=== PATIENT | female | born 1945 | race Caucasian/White ===

== ENCOUNTER 2024-02-29 07:41 | Inpatient (IN) | payer MEDICARE, OTHER ==
[2024-02-29] MEDS: predniSONE 20 MG TABLET PO STA (08:19)
[2024-02-29 08:25] LABS: BASOPHILS % (AUTO) 0.3 %; EOSINOPHILS % (AUTO) 0.2 %; HCT - HEMATOCRIT 41.3 % (37.0-47.0); HGB - HEMOGLOBIN 13.2 g/dL (12.0-16.0); LYMPHOCYTES % (AUTO) 14.3 %; MEAN CORPUSCULAR HEMOGLOBIN 27.4 pg (27.0-31.0); MEAN CORPUSCULAR VOLUME 85.7 fL (81.0-99.0); MEAN PLATELET VOLUME 10.2 fL (7.9-10.8); MONOCYTES % (AUTO) 7.4 %; NEUTROPHILS % (AUTO) 77.5 %; PLT - PLATELET COUNT 165 10^3/uL (130-450); RED BLOOD COUNT 4.82 10^6/uL (4.20-5.40); RED CELL DISTRIBUTION WIDTH 16.4 % (12.0-15.0); WHITE BLOOD COUNT 11.5 x10^3/uL (4.8-10.8)
[2024-02-29] MEDS: IPRATROPIUM/ALBUTEROL 3 ML NEB INH STA (08:25)
[2024-02-29 08:31] LABS: ABNORMAL LYMPHS % (MANUAL) 0 %
[2024-02-29 08:36] LABS: ALBUMIN 3.9 g/dL (3.2-5.5); ALBUMIN/GLOBULIN RATIO 1.1 (1.0-2.2); ALKALINE PHOSPHATASE 79 IU/L (42-121); ALT ALANINE AMINOTRANSFERASE 26 IU/L (10-60); AST ASPARTATE AMINOTRANSFERASE 31 IU/L (10-42); BILIRUBIN,TOTAL 0.9 mg/dL (0.2-1.0); BUN - BLOOD UREA NITROGEN 16 mg/dL (6-20); CALCIUM 9.1 mg/dL (8.5-10.3); CARBON DIOXIDE - CO2 25 mmol/L (21-32); CHLORIDE 96 mmol/L (101-111); CREATININE 1.1 mg/dL (0.6-1.3); GFR - MDRD 48 (>89); GLUCOSE 156 mg/dL (74-104); LIPASE < 10 U/L (11-82); POTASSIUM 3.7 mmol/L (3.5-4.5); SODIUM 131 mmol/L (135-145); TOTAL PROTEIN 7.5 g/dL (6.4-8.9)
[2024-02-29 08:43] LABS: BAND NEUTROPHILS % (MANUAL) 23 %; DIFFERENTIAL COMMENT MANUAL DIFFERENTIAL; LYMPHOCYTES # (MANUAL) 1.7 10^3/uL (1.5-3.5); LYMPHOCYTES % (MANUAL) 15 %; METAMYELOCYTES % (MANUAL) 3 %; MONOCYTES # (MANUAL) 0.9 10^3/uL (0.0-1.0); NEUTROPHILS # (MANUAL) 8.5 10^3/uL (1.5-6.6); PLATELET ESTIMATE, MANUAL NORMAL (130-450,000) (NORMAL); PLATELET MORPHOLOGY NORMAL APPEARANCE (NORMAL); RBC MORPHOLOGY (MULTIPLE) NORMAL APPEARANCE (NORMAL)
[2024-02-29] MEDS ORDERED: iohexoL-300 100 ML VIAL ONE (08:46)
--- NOTE | 2024-02-29 08:58 | XRAY Report ---
PROCEDURE: Chest 1V INDICATIONS: low O2 sat, hx COPD TECHNIQUE: One view of the chest was acquired. COMPARISON: None. FINDINGS: Surgical changes and devices: Clips are present overlying the left. Lungs and pleura: No pleural effusions or pneumothorax. Lungs are clear. Mediastinum: Mediastinal contours appear normal. Heart size is enlarged. Bones and chest wall: No suspicious bony lesions. Overlying soft tissues appear unremarkable. IMPRESSION: No acute cardiopulmonary process. Reviewed by: Juanis Rodriguez MD on 02/29/2024 8:56 AM PDT Approved by: Juanis Rodriguez MD on 02/29/2024 8:56 AM PDT Station ID: [id number]
[2024-02-29] MEDS: iohexoL-300 100 ML VIAL IVP ONE (09:16)
--- NOTE | 2024-02-29 09:34 | CT Report ---
PROCEDURE: Angio Chest INDICATIONS: SOA/hypoxia CONTRAST: OMNI 300 100ML TECHNIQUE: After the administration of intravenous contrast, 2 mm axial images were acquired from the pulmonary apices to the posterior costophrenic angles during the arterial phase. In addition, 1 mm lung kernel and 5 mm soft tissue kernel reconstructions were performed. 3-dimensional coronal oblique maximum int ensity projection (MIP) reformats, 8 mm axial MIP, and 5 mm coronal and sagittal MPR reformats were t hen performed through the thorax. For radiation dose reduction, the following was used: automated exp osure control, adjustment of mA and/or kV according to patient size. COMPARISON: Chest x-ray 02/29/2024 FINDINGS: Image quality: Excellent. Large vessels: No filling defects within the opacified pulmonary arteries, accounting for motion and contrast timing. No evidence of acute aortic syndrome or aortic aneurysm. Lungs and pleura: Patchy opacities are present in the bases bilaterally. No pleural effusions. No pn eumothorax. No suspicious pulmonary nodules which require follow up. Mediastinum: Heart size is normal. No pericardial effusion. No large vessel abnormality. No mediastin al adenopathy by size criteria. Chest wall and lower neck: Thyroid is unremarkable. No axillary or supraclavicular adenopathy by size . Bones: No aggressive osseous abnormality. Upper Abdomen: Unremarkable. IMPRESSION: No pulmonary embolus. Patchy bibasilar opacity suggestive atelectasis and possibly developing superimposed pneumonia. Reviewed by: Juanis Rodriguez MD on 02/29/2024 9:32 AM PDT Approved by: Juanis Rodriguez MD on 02/29/2024 9:32 AM PDT Station ID: [id number]
[2024-02-29 09:47] LABS: B. PARAPERTUSSIS- RESP PCR PAN NOT DETECTED; B. PERTUSSIS- RESP PCR PANEL NOT DETECTED; C. PNEUMONIAE- RESP PCR PANEL NOT DETECTED; CORONAVIRUS 229E-RESP PCR NOT DETECTED; CORONAVIRUS HKU1-RESP PCR DETECTED; CORONAVIRUS NL63-RESP PCR NOT DETECTED; CORONAVIRUS OC43-RESP PCR NOT DETECTED; HUMAN METAPNEUMOVIRUS NOT DETECTED; INFLUENZA A- RESP PCR PANEL NOT DETECTED; INFLUENZA B - RESP PCR PANEL NOT DETECTED; M. PNEUMONIAE- RESP PCR PANEL NOT DETECTED; PARAINFLUENZA VIRUS 1 DETECTED; PARAINFLUENZA VIRUS 2 NOT DETECTED; PARAINFLUENZA VIRUS 3 NOT DETECTED; PARAINFLUENZA VIRUS 4 NOT DETECTED; RHINOVIRUS/ENTEROVIRUS NOT DETECTED; RSV- RESP PCR PANEL NOT DETECTED; SARS-CoV-2 -RESP PCR PANEL NOT DETECTED
[2024-02-29] MEDS: cefTRIAXone 1 GM in SODIUM CHLORIDE 0.9% MINIBAG 100 ML IV STA (10:16)
--- NOTE | 2024-02-29 10:47 | ED Physician Documentation ---
PD HPI DYSPNEA - Stated complaint Stated Complaint: SOA - Chief complaint Chief Complaint: Resp - History obtained from History obtained from: Patient - Additional information Additional information: Patient is an 78-year-old female with a history of COPD presenting for evaluation of feeling short of breath for the last 4 days. Patiently is visiting the area from [place]. She arrived yesterday with her and they traveled via air. She is not normally on home oxygen. She has been having a productive cough for the last few days and states she did have a fever on Wednesday. She has not tested for COVID. She denies hemoptysis. No chest pain, abdominal pain, leg swelling. Denies history of PE. Review of Systems Constitutional: denies: Fever Cardiac: denies: Chest pain / pressure Respiratory: reports: Dyspnea, Cough GI: denies: Abdominal Pain, Vomiting Musculoskeletal: denies: Extremity swelling PD PAST MEDICAL HISTORY - Past Medical History Cardiovascular: Congestive heart failure - Present Medications Home Medications: Ambulatory Orders Medication Instructions Recorded Confirmed Albuterol Sulfate [Proventil Hfa] 2 puffs INH Q4H PRN 02/29/24 02/29/24 Atorvastatin Calcium 40 mg PO HS 02/29/24 02/29/24 Fluticasone/Vilanterol [Breo 1 inh INH DAILY 02/29/24 02/29/24 Ellipta 100-25 Mcg Inhalr] Levothyroxine [Synthroid] 75 mcg PO QDAC 02/29/24 02/29/24 - Allergies Allergies/Adverse Reactions: Allergies Allergy/AdvReac Type Severity Reaction Status Date / Time No Known Drug Allergies Allergy Verified 02/29/24 08:00 - Social History Does the pt smoke?: Yes Smoking Status: Former smoker PD ED PE NORMAL - General General: Alert and oriented X 3, No acute distress, Well developed/nourished - HEENT HEENT: Atraumatic, Moist mucous membranes, Pharynx benign - Neck Neck: Supple, no meningeal sign - Cardiac Cardiac: RRR, Strong equal pulses - Respiratory Respiratory: No respiratory distress, Other (Mildly diminished bilaterally) - Abdomen Abdomen: Normal bowel sounds, Soft, Non tender, Non distended - Derm Derm: Warm and dry - Extremities Extremities: No edema, No calf tenderness / cord - Neuro Neuro: Normal speech Results - Vitals Vitals: Vital Signs - 24 hr 02/29/24 02/29/2424 07:49 08:29 08:30 Temperature 37.1 C Heart Rate 106 H 108 H 122 H Respiratory 16 22 16 Rate Blood Pressure 122/55 L 122/48 L O2 Saturation 83 L 91 L If not protocol 2 2 : Oxygen Flow, liters/minute 02/29/24 02/29/24 02/29/24 08:56 09:30 10:00 Temperature Heart Rate 102 H 98 97 Respiratory 16 18 16 Rate Blood Pressure 122/48 L 108/59 L 108/59 L O2 Saturation 91 L 90 L 90 L If not protocol 2 4 4 : Oxygen Flow, liters/minute 02/29/24 02/29/24 10:30 12:30 Temperature Heart Rate 91 83 Respiratory 16 16 Rate Blood Pressure 112/58 L 119/57 L O2 Saturation 90 L 93 If not protocol 4 4 : Oxygen Flow, liters/minute Oxygen O2 Source Nasal cannula Oxygen Flow Rate 2 - EKG (time done) 0838 EKG releavant findings:: EKG personally interpreted by author of this note. Relevant findings are: Rate 106, sinus tachycardia, ventricular bigeminy, no STEMI, - Labs Labs: Laboratory Tests 02/29/24 02/29/24 02/29/24 08:05 08:05 08:05 WBC 11.5 H RBC 4.82 Hgb 13.2 Hct 41.3 MCV 85.7 MCH 27.4 MCHC 32.0 RDW 16.4 H Plt Count 165 MPV 10.2 Neut # (Auto) Not Reportable Lymph # (Auto) Not Reportable Waldo # (Auto) Not Reportable Eos # (Auto) Not Reportable Baso # (Auto) Not Reportable Absolute Nucleated RBC Not Reportable Total Counted 100 Band Neuts % (Manual) 23 H Abnorm Lymph % (Manual) 0 Metamyelocytes % 3 H Nucleated RBC % Not Reportable Neutrophils # (Manual) 8.5 H Lymphocytes # (Manual) 1.7 Monocytes # (Manual) 0.9 Eosinophils # (Manual) 0.0 Basophils # (Manual) 0.0 Differential Comment MANUAL DIFFERENTIAL Platelet Estimate NORMAL (130-450,000) Platelet Morphology NORMAL APPEARANCE RBC Morph Micro Appear NORMAL APPEARANCE Sodium 131 L Potassium 3.7 Chloride 96 L Carbon Dioxide 25 Anion Gap 10.0 BUN 16 Creatinine 1.1 Estimated GFR (MDRD) 48 L Glucose 156 H Lactic Acid Calcium 9.1 Total Bilirubin 0.9 AST 31 ALT 26 Alkaline Phosphatase 79 B-Natriuretic Peptide Total Protein 7.5 Albumin 3.9 Globulin 3.6 Albumin/Globulin Ratio 1.1 Lipase < 10 L Nasal Adenovirus (PCR) NOT DETECTED Nasal B. parapertussis DNA (PCR) NOT DETECTED Nasal Coronavir 229E PCR NOT DETECTED Nasal Coronavir HKU1 PCR DETECTED A Nasal Coronavir NL63 PCR NOT DETECTED Nasal Coronavir OC43 PCR NOT DETECTED Nasal Enterovir/Rhinovir PCR NOT DETECTED Nasal Influenza B PCR NOT DETECTED Nasal Influenza A PCR NOT DETECTED Nasal Parainfluen 1 PCR DETECTED A Nasal Parainfluen 2 PCR NOT DETECTED Nasal Parainfluen 3 PCR NOT DETECTED Nasal Parainfluen 4 PCR NOT DETECTED Nasal RSV (PCR) NOT DETECTED Nasal B.pertussis DNA PCR NOT DETECTED Nasal C.pneumoniae (PCR) NOT DETECTED Seven Human Metapneumo PCR NOT DETECTED Nasal M.pneumoniae (PCR) NOT DETECTED Nasal SARS-CoV-2 (PCR) NOT DETECTED 02/29/24 02/29/24 08:05 08:33 WBC RBC Hgb Hct MCV MCH MCHC RDW Plt Count MPV Neut # (Auto) Lymph # (Auto) Waldo # (Auto) Eos # (Auto) Baso # (Auto) Absolute Nucleated RBC Total Counted Band Neuts % (Manual) Abnorm Lymph % (Manual) Metamyelocytes % Nucleated RBC % Neutrophils # (Manual) Lymphocytes # (Manual) Monocytes # (Manual) Eosinophils # (Manual) Basophils # (Manual) Differential Comment Platelet Estimate Platelet Morphology RBC Morph Micro Appear Sodium Potassium Chloride Carbon Dioxide Anion Gap BUN Creatinine Estimated GFR (MDRD) Glucose Lactic Acid 1.9 Calcium Total Bilirubin AST ALT Alkaline Phosphatase B-Natriuretic Peptide 253 H Total Protein Albumin Globulin Albumin/Globulin Ratio Lipase Nasal Adenovirus (PCR) Nasal B. parapertussis DNA (PCR) Nasal Coronavir 229E PCR Nasal Coronavir HKU1 PCR Nasal Coronavir NL63 PCR Nasal Coronavir OC43 PCR Nasal Enterovir/Rhinovir PCR Nasal Influenza B PCR Nasal Influenza A PCR Nasal Parainfluen 1 PCR Nasal Parainfluen 2 PCR Nasal Parainfluen 3 PCR Nasal Parainfluen 4 PCR Nasal RSV (PCR) Nasal B.pertussis DNA PCR Nasal C.pneumoniae (PCR) Seven Human Metapneumo PCR Nasal M.pneumoniae (PCR) Nasal SARS-CoV-2 (PCR) PD Medical Decision Making - ED course Complexity details: reviewed results, re-evaluated patient, d/w patient, d/w family ED course: Patient is an 78-year-old female with a history of COPD not on home oxygen presenting for evaluation of shortness of breath and cough for the past few days. She recently traveled from [place] where she lives. She is hypoxic on room air. Lung sounds are diminished. CBC, chemistries, lactic, blood cultures, chest x-ray and EKG were obtained and reviewed. Significant for WBC of 11 it was 23% bandemia.Sodium 131.Chest x-ray which I reviewed did not show any significant findings. Given recent travel and significant hypoxia I did feel it was prudent to obtain a CT angio to evaluate for pulmonary embolism. Negative for PE but there are bibasilar patchy opacities suggestive of pneumonia. Patient started on antibiotics. Was already given a DuoNeb as well as p.o. prednisone With some improvement. Respiratory swab was positive for non-COVID coronavirus and parainfluenza for strain.Discussed with admitting hospitalist, Dr. Woody who will admit for further management. Departure - Departure Disposition: 66 [facility] DC/Xfer Clinical Impression: Acute respiratory failure with hypoxia, COPD exacerbation CAP (community acquired pneumonia) Qualifiers: Lung location: unspecified part of lung Condition: Good Discharge Date/Time: 02/29/24 14:06
[2024-02-29] MEDS: AZITHROMYCIN INJ 500 MG in SODIUM CHLORIDE 0.9% 250 ML IV STA (10:53)
[2024-02-29] MEDS ORDERED: SODIUM CHLORIDE FLUSH 0.9% 10 ML SYRINGE IVP PRN (12:20)
[2024-02-29] MEDS ORDERED: ONDANSETRON 4 MG/2 ML VIAL IVP PRN (12:20)
[2024-02-29] MEDS ORDERED: ACETAMINOPHEN 325 MG TABLET PO PRN (12:20)
[2024-02-29] MEDS ORDERED: oxyCODONE 5 MG TABLET PO PRN (12:20)
[2024-02-29] MEDS ORDERED: ONDANSETRON ODT 4 MG TABLET TL PRN (12:20)
[2024-02-29] MEDS: SODIUM CHLORIDE 0.9% 1,000 ML IV SCH (12:48)
[2024-02-29] MEDS: methylPREDNISolone SUCCINATE 40 MG/ML VIAL IVP SCH (15:21)
[2024-02-29] MEDS: IPRATROPIUM/ALBUTEROL 3 ML NEB INH SCH (15:23)
[2024-02-29] MEDS: FORMOTEROL FUMARATE NEB 20 MCG/2 ML INH STA (15:23)
--- NOTE | 2024-02-29 16:01 | HISTORY & PHYSICAL EXAMINATION ---
Chief Complaint - Chief Complaint Chief Complaint: cough, congestion, fever History of Present Illness - Admitted From Admitted From:: friends house - History Obtained From Records Reviewed: [facility] History obtained from: patient Exam Limitations: none - History of Present Illness HPI Comment/Other: from [place], visiting friends. Healthy w no major issues other than DM. Developed COPD w asthma 10/2023 when she Became ill with COVID and strep throat. She uses an inhaler once a day without issues. She was ill even before she left [place] to come to the [place]. Cough, chest congestion, and fever. Anorexia. Had 1 episode of diarrhea yesterday. Came to the emergency room where she was hypoxic to 83% on room air. Currently on MedSurg she is requiring 4 L nasal cannula to saturate at 90%. In the emergency room she is mildly tachycardic to the low 100s. Normotensive. No respiratory distress. Temperature is 37. She has markedly diminished breath sounds in all lung avila according to the emergency room provider but no outright wheezing or use of accessory muscles. Her chest x-ray was negative for pneumonia. And a CT pulmonary angiogram was done because of her recent travel history. She does not have pulmonary embolus but she does have patchy bibasilar opacities suggesting atelectasis and a possibly developing superimposed pneumonia. Her sodium was mildly low at 131. Her white cell count was elevated 11.5. She had 23% bands, 3% metamyelocytes. She has diabetes and glucose was 156. BNP was 253. Lactic acid 1.9. Her viral panel was positive for non-COVID coronavirus, and parainfluenza. I am now placing her in inpatient status for hypoxia, tachycardia and an abnormal chest x-ray. History - Past Medical History Cardiovascular: reports: Congestive heart failure (Put in the EMR by the nurse, but the patient denies history) Respiratory: reports: Asthma, COPD Neuro: reports: Motion sickness Endocrine/Autoimmune: reports: Type 2 diabetes, HyPOthyroidism GI: reports: None ASSEMBLY DETAILER: reports: Other () : reports: Incontinence (at night wears depends) HEENT: reports: None Psych: reports: Claustrophobia Musculoskeletal: reports: None Derm: reports: None MRSA Hx?: No Other Past Medical History: Patient denies hx of CHF, dental bridge (>50 yrs ago), Mastectomy at left, skin cancer (>10 years ago) - Past Surgical History General: reports: Cholecystectomy, Appendectomy /ASSEMBLY DETAILER: reports: Mastectomy Derm: reports: Skin cancer surgery - Family & Social History Family History Comment/Other: Mom aage 87 of CHF. Dad age 79 if CHF. 1 brother with parkinsons, immune disorder and heart valve disease. 3 children are healthy Living arrangement: At home Living Situation: With spouse/s.o. Social History Notes: Born and raised in [place]. Currently lives in [facility]. 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 No hx of alcohol or tobacco abuse. Never smoked. Visiting a good friend and comes frequently to the [place]. - Substance History Use: Uses substance without health or social issues: NONE Abuse: Recurrent use of substance despite neg consequences: NONE Dependence: Experiences withdrawal or developed tolerances: NONE - POLST Patient has POLST: No POLST Status: DNR Meds/Allgy - Home Medications Home Medications: Ambulatory Orders Medication Instructions Recorded Confirmed Albuterol Sulfate [Proventil Hfa] 2 puffs INH Q4H PRN 02/29/24 02/29/24 Atorvastatin Calcium 40 mg PO HS 02/29/24 02/29/24 Fluticasone/Vilanterol [Breo 1 inh INH DAILY 02/29/24 02/29/24 Ellipta 100-25 Mcg Inhalr] Levothyroxine [Synthroid] 75 mcg PO QDAC 02/29/24 02/29/24 - Allergies Allergies/Adverse Reactions: Allergies Allergy/AdvReac Type Severity Reaction Status Date / Time No Known Drug Allergies Allergy Verified 02/29/24 08:00 Review of Systems - Constitutional Constitutional: reports: Fatigue, Fever, Malaise, Poor appetite - Eyes Eyes: denies: Pain, Irritation, Amaurosis, Blurred vision - Ears, Nose & Throat Ears, Nose & Throat: denies: Ear pain, Hearing loss, Hearing aids, Tinnitus, Sore throat, Hoarseness - Cardiovascular Cariovascular: denies: Irregular heart rate, Palpitations, Chest pain, Edema, Exertional dyspnea, Decr. exercise tolerance - Respiratory Respiratory: reports: Cough, Sputum production, Wheezing, SOB with exertion. denies: Snoring, Orthopnea, SOB at rest - Gastrointestinal Gastrointestinal: reports: Diarrhea. denies: Abdominal pain, Abdominal dist ention, Constipation - Genitourinary Genitourinary: reports: Incontinence. denies: Dysuria, Frequency, Urgency, Hematuria - Musculoskeletal Musculoskeletal: denies: Muscle pain, Back pain, Muscle aches, Stiffness - Integumentary Integumentary: denies: Rash, Pruritis, Lesions, Dryness - Neurological Neurological: reports: General weakness. denies: Focal weakness, Headache, Dizziness, Memory problems, Pre-existing deficit, Abnormal gait - Psychiatric Psychiatric: denies: Depression, Anxiety, Suicidal, Hallucinations, Homicidal - Endocrine Endocrine: denies: Polyuria, Polydypsia, Polyphagia - Hematologic/Lymphatic Hematologic/Lymphatic: denies: Anemia, Bruising, Petechiae Prior Level of Functionality: does not use any DME. Drives, works, takes care of hosue without issue Exam - Vital Signs Reviewed Vital Signs: Yes Vital Signs: Vital Signs x48h Temp Pulse Pulse Resp BP BP Pulse Ox 02/29/24 14:27 36.7 C 86 20 114/56 L 90 L 02/29/24 14:14 02/29/24 12:30 83 16 119/57 L 93 02/29/24 10:30 91 16 112/58 L 90 L 02/29/24 10:00 97 16 108/59 L 90 L 02/29/24 09:30 98 18 108/59 L 90 L 02/29/24 08:56 102 H 16 122/48 L 91 L 02/29/24 08:30 122 H 16 122/48 L 91 L 02/29/24 08:29 108 H 22 O2 Flow Rate 02/29/24 14:27 3 02/29/24 14:14 4 02/29/24 12:30 4 02/29/24 10:30 4 02/29/24 10:00 4 02/29/24 09:30 4 02/29/24 08:56 2 02/29/24 08:30 2 02/29/24 08:29 2 - Physical Exam General Appearance: positive: No acute distress, Alert, Other (looks much younger than stated age. at the bedside. He is moderatel deaf and can't contribute much) Eyes Bilateral: positive: PERRL, EOMI ENT: positive: Pharynx nml Neck: positive: No JVD. negative: Stiff neck Respiratory: positive: No respiratory distress, Rhonchi (squeaking and cracking at bases. Rest of lungs quiet) Cardiovascular: positive: Regular rate & rhythm Peripheral Pulses: positive: 1+ Abdomen: positive: Non-tender, No organomegaly, Nml bowel sounds, No distention Skin: positive: Warm, Dry Extremities: positive: Full ROM, No pedal edema Neurologic/Psychiatric: positive: Oriented x3, CN's nml (2-12), Motor nml Conclusion/Plan - Problem List (1) Acute respiratory failure with hypoxia Conclusion/Plan: most likely due to atelectasis or early pna from her viral illness. PE was thought of and ruled out with CTA. Somewhere along the line, hx of CHF was put in PMH by ?intake nurse but the patient denies the hx of that. While she has a hx of copd there is no wheezing, and she is at 45 degress, comfortable without tachypnea in spite of hypoxia. Plan treat as viral illness with possible eearly pna Azithro Day 1/ Ceftriazone Day 1/ Adjust abx on basis of cultures supplement w 02 to keep 02 sats >92% no tamilflu (2) CAP (community acquired pneumonia) Conclusion/Plan: bilateral lower lobes. Has left shift on WBC that is mildly elevated indicating bacterial infection. as above with abx Qualifiers: Lung location: unspecified part of lung (3) COPD without exacerbation Conclusion/Plan: quiet lungs on exam. Duoneb and IV steroids solumedrol 40 mg tid. (4) Controlled type 2 diabetes mellitus without complication, without long-term current use of insulin Conclusion/Plan: home med is metformin. she is going to be getting steroids. Plan: glucometer stick ac and hs. SS insulin before meals. A1c in the morning. (5) Do not resuscitate Conclusion/Plan: she doesn't want cpr or intubation. But does want full treatment prior to that. - Lab Results Lab results reviewed: Yes Fish Bones: 02/29/24 08:05 02/29/24 08:05 - Diagnostic Imaging Results Diagnostic Imaging Results: positive: Final report reviewed - EKG Results EKG Interpreted Independently: No Core Measures - Anticipated LOS I expect patient to be DC'd or transferred within 96 hours.: Yes - DVT/VTE - Prophylaxis VTE/DVT Prophylaxis med ordered at admit?: Yes
[2024-02-29] MEDS: SODIUM CHLORIDE FLUSH 0.9% 10 ML SYRINGE IVP SCH (16:41)
[2024-02-29] MEDS: SACCHAROMYCES BOULARDII 250 MG CAPSULE PO SCH (18:37)
[2024-02-29] MEDS: BUDESONIDE 0.5 MG/2 ML NEB INH SCH (19:14)
[2024-02-29] MEDS: ATORVASTATIN 40 MG TABLET PO SCH (21:08)
[2024-03-01 06:05] LABS: BASOPHILS % (AUTO) 0.2 %; HCT - HEMATOCRIT 36.1 % (37.0-47.0); HGB - HEMOGLOBIN 11.5 g/dL (12.0-16.0); LYMPHOCYTES # (AUTO) 1.1 10^3/uL (1.5-3.5); LYMPHOCYTES % (AUTO) 9.5 %; MEAN CORPUSCULAR HEMOGLOBIN 27.3 pg (27.0-31.0); MEAN CORPUSCULAR HGB CONC 31.9 g/dL (32.0-36.0); MEAN CORPUSCULAR VOLUME 85.5 fL (81.0-99.0); MEAN PLATELET VOLUME 10.2 fL (7.9-10.8); MONOCYTES # (AUTO) 0.7 10^3/uL (0.0-1.0); NEUTROPHILS # (AUTO) 9.9 10^3/uL (1.5-6.6); NEUTROPHILS % (AUTO) 83.9 %; PLT - PLATELET COUNT 164 10^3/uL (130-450); RED BLOOD COUNT 4.22 10^6/uL (4.20-5.40); RED CELL DISTRIBUTION WIDTH 16.3 % (12.0-15.0); WHITE BLOOD COUNT 11.7 x10^3/uL (4.8-10.8)
[2024-03-01 06:19] LABS: CALCIUM 9.2 mg/dL (8.5-10.3); CREATININE 0.8 mg/dL (0.6-1.3); POTASSIUM 4.1 mmol/L (3.5-4.5)
[2024-03-01] MEDS: LEVOTHYROXINE 75 MCG TABLET PO SCH (06:59)
[2024-03-01] MEDS: AZITHROMYCIN INJ 500 MG in SODIUM CHLORIDE 0.9% 250 ML IV SCH (08:58)
[2024-03-01 09:35] LABS: ESTIMATED AVERAGE GLUCOSE 148 mg/dL (70-100); HEMOGLOBIN A1c% 6.8 % (4.27-6.07)
--- NOTE | 2024-03-01 10:16 | PHARMACY PROGRESS NOTE ---
- Best Possible Medication History Admit Date and Time: 02/29/24 1237 Processed by: Pharmacy Medications reviewed in ED?: No Medication History completed: Yes Patient Interview: Completed Secondary Source(s): Insurance records As the person ultimately responsible for medication therapy, providers are able to order a medication from an existing home medication list in [facility] via the "Reconcile Routine" prior to Confirmation of that medication by work station support specialist. Such practice is discouraged except when the physician, in their clinical judgment, deems that a medical need exists for a medication without regard to previous use.
[2024-03-01] MEDS: cefTRIAXone 1 GM in SODIUM CHLORIDE 0.9% MINIBAG 100 ML IV SCH (10:32)
[2024-03-01] MEDS: INSULIN LISPRO 300 UNIT/3 ML PEN SUBQ SCH ×2 (11:53→20:52)
--- NOTE | 2024-03-01 12:21 | PROVIDER PROGRESS NOTE ---
Assessment/Plan - Problem List (1) Acute respiratory failure with hypoxia Assessment/Plan: due to viral infection and possible secondary bacterial lung infection. No growth to date on blood cultures. Still needed 4 liters NC today. Lungs w fine crackles today and improved from yesterday. Sitting up in chair eating lunch. Clear secretions with her cough. Plan: No tamilflu continue duoneb continue azithromycin Day 2/3 Continue ceftriaxone Day 2/5 continue solumedrol Day 2/3 continue IS (2) CAP (community acquired pneumonia) Conclusion/Plan: Bilateral lower lobes. Has left shift on WBC that is mildly elevated indicating bacterial infection. as above with abx. Qualifiers: Lung location: unspecified part of lung (3) COPD without exacerbation Conclusion/Plan: Lung exam as above. Continue Duoneb and IV steroids solumedrol 40 mg TID. (4) Controlled type 2 diabetes mellitus without complication, without long-term current use of insulin Conclusion/Plan: Home med is metformin. She is on IV steroids. HA1c 6.8, suggests suboptimal blood glucose control. Blood glucose 350 today prior to lunch on insulin lispro moderate intensity (received 9 units SQ) Plan: Continue glucometer stick ac and hs. SS insulin before meals, increase to high intensity protocol Add lantus 10 units at hs (5) Do not resuscitate Conclusion/Plan: She doesn't want cpr or intubation. But does want full treatment prior to that. - Current Meds Current Meds: Current Medications Generic Name Dose Route Start Last Admin Trade Name Freq PRN Reason Stop Dose Admin Albuterol/Ipratropium 3 ml 02/29/24 15:00 03/01/24 11:10 Ipratropium/Albuterol 3 Ml Neb INH 3 ml RTQID CRYSTAL Administration Atorvastatin Calcium 40 mg 02/29/24 21:00 02/29/24 21:08 Atorvastatin 40 Mg Tablet PO Not Given HS CRYSTAL Budesonide 0.5 mg 02/29/24 19:00 03/01/24 07:09 Budesonide 0.5 Mg/2 Ml Neb INH 0.5 mg RTBID CRYSTAL Administration Azithromycin 500 mg/ Sodium 250 mls @ 250 mls/hr 03/01/24 09:00 03/01/24 11:11 Chloride IV 03/03/24 09:59 Infused DAILY CRYSTAL Infusion Ceftriaxone Sodium 1 gm/ 100 mls @ 200 mls/hr 03/01/24 09:00 03/01/24 11:16 Sodium Chloride IV 03/05/24 09:29 Infused DAILY CRYSTAL Infusion Insulin Human Lispro 1 - 9 unit 03/01/24 12:00 03/01/24 11:53 Insulin Lispro 300 Unit/3 Ml Pen SUBQ 9 unit 0800,1200,1700,2100 CRYSTAL Administration Protocol Levothyroxine Sodium 75 mcg 03/01/24 07:00 03/01/24 06:59 Levothyroxine 75 Mcg Tablet PO 75 mcg QDAC CRYSTAL Administration Methylprednisolone 40 mg 02/29/24 14:00 03/01/24 06:59 Methylprednisolone Succinate 40 Mg/Ml Vial IVP 40 mg TID CRYSTAL Administration Saccharomyces Boulardii 250 mg 02/29/24 17:00 03/01/24 07:45 Saccharomyces Boulardii 250 Mg Capsule PO 250 mg BIDWM CRYSTAL Administration Sodium Chloride 10 ml 02/29/24 17:00 03/01/24 09:41 Sodium Chloride Flush 0.9% 10 Ml Syringe IVP Not Given 0100,0900,1700 CRYSTAL - Lab Result Fish Bone Diagrams: 03/01/24 05:56 03/01/24 05:56 - Additional Planning Condition/Complexity: Stable (Still remains on 4L NC O2) My Orders: My Active Orders 02/29/24 12:20 Activity Orders [RC] Q2HR IO [RC] IOSHIFT Incentive Spirometry - RT [RC] .tid Initiate Bowel Care Protocol [RC] .protocol Initiate Line Care Protocol [RC] QSHIFT Initiate Personal Care Protoco [RC] .protocol Oxygen Therapy [RC] .PRN Vital Signs [RC] 0800,1600,0000 Acetaminophen [Tylenol] 650 mg PO Q4HR PRN Ondansetron Inj [Zofran Inj] 4 mg IVP Q6HR PRN Ondansetron Odt [Zofran Odt] 4 mg TL Q6HR PRN Sodium Chloride Flush 0.9% [Normal Saline Flush 0.9%] 10 ml IVP PRN PRN oxyCODONE [Roxicodone] 5 mg PO Q4HR PRN Code Status [OTHERS] Routine Condition of Patient [OTHERS] Routine DVT Prophylaxis [OTHERS] Routine 02/29/24 12:26 IV Insert [RC] .ONCE 02/29/24 12:35 Resp Teach Nebulizer/MDI [RC] .ONCE 02/29/24 12:39 PN-6 Meaningful Use Quality and Core Measures [OTHERS] Routine 02/29/24 14:00 methylPREDNISolone SUCCINATE [SOLU-Medrol (40MG VIAL)] 40 mg IVP TID 02/29/24 15:00 Ipratropium/Albuterol [Duoneb] 3 ml INH RTQID 02/29/24 15:50 Resuscitation [Code Status] [OTHERS] Routine 02/29/24 17:00 Saccharomyces Boulardii [Florastor] 250 mg PO BIDWM Sodium Chloride Flush 0.9% [Normal Saline Flush 0.9%] 10 ml IVP 0100,0900,1700 02/29/24 19:00 Budesonide [Pulmicort] 0.5 mg INH RTBID 02/29/24 19:16 Nebulizer [Nebulizer/MDI Tx.] [RC] QID 02/29/24 21:00 Atorvastatin [Lipitor] 40 mg PO HS 03/01/24 07:00 Levothyroxine [Synthroid] 75 mcg PO QDAC 03/01/24 08:03 Blood Glucose Checks - Eating [RC] 0800,1200,1700,2100 Initiate Hypoglycemia Protocol [RC] .protocol 03/01/24 09:00 Azithromycin Inj [Zithromax Inj] 500 mg Sodium Chloride 0.9% [Normal Saline 0.9%] 250 ml IV DAILY cefTRIAXone [Rocephin] 1 gm Sodium Chloride 0.9% Minibag [Normal Saline 0.9% Minibag] 100 ml IV DAILY 03/01/24 12:00 Insulin Lispro [Humalog Kwikpen U-100] 1 - 9 unit SUBQ 0800,1200,1700,2100 03/02/24 05:00 BMP - BASIC METABOLIC PANEL [CHEM] DAILYLAB CBC [CBC - COMP BLD CT W/AUTO DIFF] [HEME] DAILYLAB 03/02/24 09:00 BNP - B-NATRIURETIC PEPTIDE [CHEM] DAILY 03/03/24 05:00 BMP - BASIC METABOLIC PANEL [CHEM] DAILYLAB CBC [CBC - COMP BLD CT W/AUTO DIFF] [HEME] DAILYLAB 03/03/24 09:00 BNP - B-NATRIURETIC PEPTIDE [CHEM] DAILY 03/04/24 05:00 BMP - BASIC METABOLIC PANEL [CHEM] DAILYLAB CBC [CBC - COMP BLD CT W/AUTO DIFF] [HEME] DAILYLAB 03/04/24 09:00 BNP - B-NATRIURETIC PEPTIDE [CHEM] DAILY 03/05/24 05:00 BMP - BASIC METABOLIC PANEL [CHEM] DAILYLAB CBC [CBC - COMP BLD CT W/AUTO DIFF] [HEME] DAILYLAB 03/05/24 09:00 BNP - B-NATRIURETIC PEPTIDE [CHEM] DAILY Plan Discussed with:: Patient, Spouse Time Spent: Less than 15 minutes Subjective - Subjective Patient Reports: Feeling Better, Resting Comfortably (diarrhea better. the only nursing worry was glucose being high) Objective Vital Signs: Vital Signs - 24 hr 02/29/24 02/29/24 02/29/24 12:30 14:14 14:27 Temperature 36.7 C Heart Rate 83 Heart Rate [ 86 Brachial] Respiratory 16 20 Rate Blood Pressure 119/57 L Blood Pressure 114/56 L [Right Brachial artery] O2 Saturation 93 90 L If not protocol 4 4 3 : Oxygen Flow, liters/minute 02/29/24 02/29/24 03/01/24 16:00 19:15 00:00 Temperature 37.3 C 36.3 C L Heart Rate 86 Heart Rate [ 78 69 Brachial] Respiratory 16 24 20 Rate Blood Pressure Blood Pressure 127/68 140/70 H [Right Brachial artery] O2 Saturation 92 93 If not protocol 3 3 2 : Oxygen Flow, liters/minute 03/01/24 03/01/24 03/01/24 07:10 07:11 07:47 Temperature 36.6 C Heart Rate 78 Heart Rate [ 78 Brachial] Respiratory 22 Rate Blood Pressure Blood Pressure 122/57 L [Right Brachial artery] O2 Saturation 91 L If not protocol 2 2 4 : Oxygen Flow, liters/minute 03/01/24 11:11 Temperature Heart Rate 74 Heart Rate [ Brachial] Respiratory 20 Rate Blood Pressure Blood Pressure [Right Brachial artery] O2 Saturation If not protocol 4 : Oxygen Flow, liters/minute Oxygen O2 Source Nasal cannula Oxygen Flow Rate 2 I&O (Last 24 Hrs): Intake and Output Totals x24h 02/28/24 02/29/24 03/01/24 23:59 23:59 23:59 Intake Total 790 2190 Balance 790 2190 General: Alert, Oriented x3, Cooperative HEENT: Atraumatic, PERRLA Neuro: Alert, Non Focal, Oriented Times 3 Cardiovascular: Regular rate, Normal S1, Normal S2, No murmurs Respiratory: Chest non-tender, No respiratory distress Abdomen: Normal bowel sounds, Soft, No tenderness Genitourinary: Normal External, No Bleeding, No Tenderness Rectal: Non-Tender Extremities: Other (+ bilat pedal edema) Skin: No rashes - Results Results: Laboratory Results WBC 11.7 x10^3/uL (4.8-10.8) H 03/01/24 05:56 RBC 4.22 10^6/uL (4.20-5.40) 03/01/24 05:56 Hgb 11.5 g/dL (12.0-16.0) L 03/01/24 05:56 Hct 36.1 % (37.0-47.0) L 03/01/24 05:56 MCV 85.5 fL (81.0-99.0) 03/01/24 05:56 MCH 27.3 pg (27.0-31.0) 03/01/24 05:56 MCHC 31.9 g/dL (32.0-36.0) L 03/01/24 05:56 RDW 16.3 % (12.0-15.0) H 03/01/24 05:56 Plt Count 164 10^3/uL (130-450) 03/01/24 05:56 MPV 10.2 fL (7.9-10.8) 03/01/24 05:56 Neut # (Auto) 9.9 10^3/uL (1.5-6.6) H 03/01/24 05:56 Lymph # (Auto) 1.1 10^3/uL (1.5-3.5) L 03/01/24 05:56 [place] # (Auto) 0.7 10^3/uL (0.0-1.0) 03/01/24 05:56 Eos # (Auto) 0.0 10^3/uL (0.0-0.7) 03/01/24 05:56 Baso # (Auto) 0.0 10^3/uL (0.0-0.1) 03/01/24 05:56 Absolute Nucleated RBC 0.00 x10^3/uL 03/01/24 05:56 Total Counted 100 02/29/24 08:05 Band Neuts % (Manual) 23 % (0-10) H 02/29/24 08:05 Abnorm Lymph % (Manual) 0 % 02/29/24 08:05 Metamyelocytes % 3 % (-0) H 02/29/24 08:05 Nucleated RBC % 0.0 /100WBC 03/01/24 05:56 Neutrophils # (Manual) 8.5 10^3/uL (1.5-6.6) H 02/29/24 08:05 Lymphocytes # (Manual) 1.7 10^3/uL (1.5-3.5) 02/29/24 08:05 Monocytes # (Manual) 0.9 10^3/uL (0.0-1.0) 02/29/24 08:05 Eosinophils # (Manual) 0.0 10^3/uL (0-0.7) 02/29/24 08:05 Basophils # (Manual) 0.0 10^3/uL (0-0.1) 02/29/24 08:05 Differential Comment MANUAL DIFFERENTIAL 02/29/24 08:05 Platelet Estimate NORMAL (130-450,000) (NORMAL) 02/29/24 08:05 Platelet Morphology NORMAL APPEARANCE (NORMAL) 02/29/24 08:05 RBC Morph Micro Appear NORMAL APPEARANCE (NORMAL) 02/29/24 08:05 Sodium 137 mmol/L (135-145) 03/01/24 05:56 Potassium 4.1 mmol/L (3.5-4.5) 03/01/24 05:56 Chloride 107 mmol/L (101-111) 03/01/24 05:56 Carbon Dioxide 24 mmol/L (21-32) 03/01/24 05:56 Anion Gap 6.0 (6-13) 03/01/24 05:56 BUN 19 mg/dL (6-20) 03/01/24 05:56 Creatinine 0.8 mg/dL (0.6-1.3) 03/01/24 05:56 Estimated GFR (MDRD) 69 (>89) L 03/01/24 05:56 Glucose 200 mg/dL (74-104) H 03/01/24 05:56 POC Whole Bld Glucose 350 mg/dL (70 - 100) H 03/01/24 11:01 Estimat Average Glucose 148 mg/dL (70-100) H 03/01/24 05:56 Hemoglobin A1c % 6.8 % (4.27-6.07) H 03/01/24 05:56 Lactic Acid 1.9 mmol/L (0.5-2.2) 02/29/24 08:33 Calcium 9.2 mg/dL (8.5-10.3) 03/01/24 05:56 Total Bilirubin 0.9 mg/dL (0.2-1.0) 02/29/24 08:05 AST 31 IU/L (10-42) 02/29/24 08:05 ALT 26 IU/L (10-60) 02/29/24 08:05 Alkaline Phosphatase 79 IU/L (42-121) 02/29/24 08:05 B-Natriuretic Peptide 285 pg/mL (5-100) H 03/01/24 05:56 Total Protein 7.5 g/dL (6.4-8.9) 02/29/24 08:05 Albumin 3.9 g/dL (3.2-5.5) 02/29/24 08:05 Globulin 3.6 g/dL (2.1-4.2) 02/29/24 08:05 Albumin/Globulin Ratio 1.1 (1.0-2.2) 02/29/24 08:05 Lipase < 10 U/L (11-82) L 02/29/24 08:05 Nasal Adenovirus (PCR) NOT DETECTED 02/29/24 08:05 Nasal B. parapertussis DNA (PCR) NOT DETECTED 02/29/24 08:05 Nasal Coronavir 229E PCR NOT DETECTED 02/29/24 08:05 Nasal Coronavir HKU1 PCR DETECTED A 02/29/24 08:05 Nasal Coronavir NL63 PCR NOT DETECTED 02/29/24 08:05 Nasal Coronavir OC43 PCR NOT DETECTED 02/29/24 08:05 Nasal Enterovir/Rhinovir PCR NOT DETECTED 02/29/24 08:05 Nasal Influenza B PCR NOT DETECTED 02/29/24 08:05 Nasal Influenza A PCR NOT DETECTED 02/29/24 08:05 Nasal Parainfluen 1 PCR DETECTED A 02/29/24 08:05 Nasal Parainfluen 2 PCR NOT DETECTED 02/29/24 08:05 Nasal Parainfluen 3 PCR NOT DETECTED 02/29/24 08:05 Nasal Parainfluen 4 PCR NOT DETECTED 02/29/24 08:05 Nasal RSV (PCR) NOT DETECTED 02/29/24 08:05 Nasal B.pertussis DNA PCR NOT DETECTED 02/29/24 08:05 Nasal C.pneumoniae (PCR) NOT DETECTED 02/29/24 08:05 Seven Human Metapneumo PCR NOT DETECTED 02/29/24 08:05 Nasal M.pneumoniae (PCR) NOT DETECTED 02/29/24 08:05 Nasal SARS-CoV-2 (PCR) NOT DETECTED 02/29/24 08:05 ABX Reporting Has patient been on IV antibiotics over the past 48 hours?: Yes Current Medications - Current Medications Current Medications: Active Medications Acetaminophen (Acetaminophen 325 Mg Tablet) 650 mg PO Q4HR PRN PRN Reason: Pain 1 to 4, or Fever Albuterol/Ipratropium (Ipratropium/Albuterol 3 Ml Neb) 3 ml INH RTQID CRYSTAL Last Admin: 03/01/24 15:18 Dose: 3 ml Atorvastatin Calcium (Atorvastatin 40 Mg Tablet) 40 mg PO HS CRYSTAL Last Admin: 02/29/24 21:08 Dose: Not Given Budesonide (Budesonide 0.5 Mg/2 Ml Neb) 0.5 mg INH RTBID CRYSTAL Last Admin: 03/01/24 07:09 Dose: 0.5 mg Diphenhydramine HCl (Diphenhydramine 25 Mg Capsule) 25 mg PO Q4HR PRN PRN Reason: Allergy Symptoms Last Admin: 03/01/24 14:05 Dose: 25 mg Azithromycin 500 mg/ Sodium (Chloride) 250 mls @ 250 mls/hr IV DAILY CRYSTAL Stop: 03/03/24 09:59 Last Infusion: 03/01/24 11:11 Dose: Infused Ceftriaxone Sodium 1 gm/ (Sodium Chloride) 100 mls @ 200 mls/hr IV DAILY CRYSTAL Stop: 03/05/24 09:29 Last Infusion: 03/01/24 11:16 Dose: Infused Insulin Glargine-yfgn (Insulin Glargine-Yfgn 300 Unit/3 Ml Pen) 10 unit SUBQ QPM CRYSTAL Insulin Human Lispro (Insulin Lispro 300 Unit/3 Ml Pen) 1 - 9 unit SUBQ 0800,1200,1700,2100 CRYSTAL; Protocol Last Admin: 03/01/24 16:56 Dose: 5 unit Levothyroxine Sodium (Levothyroxine 75 Mcg Tablet) 75 mcg PO QDAC [facility] Last Admin: 03/01/24 06:59 Dose: 75 mcg Methylprednisolone (Methylprednisolone Succinate 40 Mg/Ml Vial) 40 mg IVP TID [facility] Last Admin: 03/01/24 14:05 Dose: 40 mg Ondansetron HCl (Ondansetron Odt 4 Mg Tablet) 4 mg TL Q6HR PRN PRN Reason: Nausea / Vomiting Ondansetron HCl (Ondansetron 4 Mg/2 Ml Vial) 4 mg IVP Q6HR PRN PRN Reason: Nausea / Vomiting Oxycodone HCl (Oxycodone 5 Mg Tablet) 5 mg PO Q4HR PRN PRN Reason: Pain 5 to 7 Saccharomyces Boulardii (Saccharomyces Boulardii 250 Mg Capsule) 250 mg PO BIDWM [facility] Last Admin: 03/01/24 16:57 Dose: 250 mg Sodium Chloride (Sodium Chloride Flush 0.9% 10 Ml Syringe) 10 ml IVP PRN PRN PRN Reason: NEEDED PER PROVIDER ORDERS Sodium Chloride (Sodium Chloride Flush 0.9% 10 Ml Syringe) 10 ml IVP 0100,0900,1700 [facility] Last Admin: 03/01/24 16:57 Dose: 10 ml Albuterol Sulfate [Proventil Hfa] 2 puffs INH Q4H PRN 02/29/24 Fluticasone/Vilanterol [Breo Ellipta 100-25 Mcg Inhalr] 1 inh INH DAILY 02/29/24 Levothyroxine [Synthroid] 75 mcg PO QDAC 02/29/24 Aspirin [[place] Aspirin EC] 81 mg PO DAILY 03/01/24 Cetirizine [ZyrTEC] 10 mg PO DAILY 03/01/24 Cholecalciferol [Vitamin D3] See Rx Instructions .ROUTE .COMPLEX 03/01/24 metFORMIN [Glucophage] 500 mg PO DAILY 03/01/24
[2024-03-01] MEDS: diphenhydrAMINE 25 MG CAPSULE PO PRN (14:05)
[2024-03-01] MEDS: INSULIN GLARGINE-YFGN 300 UNIT/3 ML PEN SUBQ SCH (20:51)
[2024-03-02 05:44] LABS: BASOPHILS % (AUTO) 0.3 %; HGB - HEMOGLOBIN 11.1 g/dL (12.0-16.0); LYMPHOCYTES # (AUTO) 1.2 10^3/uL (1.5-3.5); LYMPHOCYTES % (AUTO) 8.2 %; MEAN CORPUSCULAR HEMOGLOBIN 27.8 pg (27.0-31.0); MEAN CORPUSCULAR HGB CONC 32.6 g/dL (32.0-36.0); MONOCYTES # (AUTO) 0.7 10^3/uL (0.0-1.0); MONOCYTES % (AUTO) 4.8 %; NEUTROPHILS # (AUTO) 12.5 10^3/uL (1.5-6.6); PLT - PLATELET COUNT 200 10^3/uL (130-450); RED CELL DISTRIBUTION WIDTH 16.4 % (12.0-15.0); WHITE BLOOD COUNT 14.7 x10^3/uL (4.8-10.8)
[2024-03-02 06:01] LABS: CALCIUM 9.4 mg/dL (8.5-10.3); CREATININE 0.7 mg/dL (0.6-1.3); POTASSIUM 3.7 mmol/L (3.5-4.5)
--- NOTE | 2024-03-02 16:32 | PROVIDER PROGRESS NOTE ---
Subjective - Prog Note Date Prog Note Date: 03/02/24 Prog Note Time: 16:32 - Subjective Pt reports feeling: Improved Subjective: she is cheerful, alert, ambulating in room. cough is congested. but eating well. no cp, no nausea. Current Medications - Current Medications Current Medications: Active Medications Acetaminophen (Acetaminophen 325 Mg Tablet) 650 mg PO Q4HR PRN PRN Reason: Pain 1 to 4, or Fever Albuterol/Ipratropium (Ipratropium/Albuterol 3 Ml Neb) 3 ml INH RTQID CRYSTAL Last Admin: 03/02/24 14:51 Dose: 3 ml Atorvastatin Calcium (Atorvastatin 40 Mg Tablet) 40 mg PO HS CRYSTAL Last Admin: 03/01/24 20:51 Dose: 40 mg Budesonide (Budesonide 0.5 Mg/2 Ml Neb) 0.5 mg INH RTBID CRYSTAL Last Admin: 03/02/24 06:56 Dose: 0.5 mg Diphenhydramine HCl (Diphenhydramine 25 Mg Capsule) 25 mg PO Q4HR PRN PRN Reason: Allergy Symptoms Last Admin: 03/01/24 14:05 Dose: 25 mg Azithromycin 500 mg/ Sodium (Chloride) 250 mls @ 250 mls/hr IV DAILY CRYSTAL Stop: 03/03/24 09:59 Last Infusion: 03/02/24 11:49 Dose: Infused Ceftriaxone Sodium 1 gm/ (Sodium Chloride) 100 mls @ 200 mls/hr IV DAILY CRYSTAL Stop: 03/05/24 09:29 Last Infusion: 03/02/24 11:49 Dose: Infused Insulin Glargine-yfgn (Insulin Glargine-Yfgn 300 Unit/3 Ml Pen) 10 unit SUBQ QPM CRYSTAL Last Admin: 03/01/24 20:51 Dose: 10 unit Insulin Glargine-yfgn (Insulin Glargine-Yfgn 300 Unit/3 Ml Pen) 5 unit SUBQ QDAC CRYSTAL Insulin Human Lispro (Insulin Lispro 300 Unit/3 Ml Pen) 2 - 10 unit SUBQ 0800,1200,1700,2100 CRYSTAL; Protocol Last Admin: 03/02/24 11:47 Dose: 6 unit Levothyroxine Sodium (Levothyroxine 75 Mcg Tablet) 75 mcg PO QDAC CRYSTAL Last Admin: 03/02/24 06:15 Dose: 75 mcg Methylprednisolone (Methylprednisolone Succinate 40 Mg/Ml Vial) 40 mg IVP TID [facility] Last Admin: 03/02/24 14:18 Dose: 40 mg Ondansetron HCl (Ondansetron Odt 4 Mg Tablet) 4 mg TL Q6HR PRN PRN Reason: Nausea / Vomiting Ondansetron HCl (Ondansetron 4 Mg/2 Ml Vial) 4 mg IVP Q6HR PRN PRN Reason: Nausea / Vomiting Oxycodone HCl (Oxycodone 5 Mg Tablet) 5 mg PO Q4HR PRN PRN Reason: Pain 5 to 7 Saccharomyces Boulardii (Saccharomyces Boulardii 250 Mg Capsule) 250 mg PO B IDWM [facility] Last Admin: 03/02/24 07:44 Dose: 250 mg Sodium Chloride (Sodium Chloride Flush 0.9% 10 Ml Syringe) 10 ml IVP PRN PRN PRN Reason: NEEDED PER PROVIDER ORDERS Sodium Chloride (Sodium Chloride Flush 0.9% 10 Ml Syringe) 10 ml IVP 0100,0900,1700 [facility] Last Admin: 03/02/24 07:52 Dose: 10 ml Albuterol Sulfate [Proventil Hfa] 2 puffs INH Q4H PRN 02/29/24 Fluticasone/Vilanterol [Breo Ellipta 100-25 Mcg Inhalr] 1 inh INH DAILY 02/29/24 Levothyroxine [Synthroid] 75 mcg PO QDAC 02/29/24 Aspirin [[place] Aspirin EC] 81 mg PO DAILY 03/01/24 Cetirizine [ZyrTEC] 10 mg PO DAILY 03/01/24 Cholecalciferol [Vitamin D3] See Rx Instructions .ROUTE .COMPLEX 03/01/24 metFORMIN [Glucophage] 500 mg PO DAILY 03/01/24 Objective - Vital Signs/Intake & Output Reviewed Vital Signs: Yes Vital Signs: Vital Signs x48h Temp Pulse Pulse Resp BP Pulse Ox O2 Flow Rate 03/02/24 16:00 36.8 C 85 20 140/73 H 93 1 03/02/24 14:51 78 18 03/02/24 10:56 78 15 1 Intake & Output: Intake & Output 02/28/24 02/29/24 03/01/24 03/02/24 23:59 23:59 23:59 23:59 Intake Total 790 3230 830 Balance 790 3230 830 - Objective General Appearance: positive: Alert, Mild distress, Other Eyes Bilateral: positive: PERRL, EOMI ENT: positive: Pharynx nml, No signs of dehydration Neck: positive: No JVD. negative: Stiff neck Respiratory: positive: No respiratory distress, Rhonchi (musical rhonchi today .), Other (better air sounds, not as diminished). negative: Wheezes Cardiovascular: positive: Regular rate & rhythm Abdomen: positive: Non-tender, No organomegaly, Nml bowel sounds, No distention Skin: positive: Warm, Dry. negative: Pallor Extremities: positive: Full ROM. negative: No pedal edema, Pedal edema, Calf tenderness Neurologic/Psychiatric: positive: Oriented x3, CN's nml (2-12), Motor nml - Lab Results Fish Bones: 03/02/24 05:20 03/02/24 05:20 Other Labs: Lab Results x24hrs 03/02/24 03/02/24 03/02/24 Range/Units 11:25 07:45 05:20 WBC (4.8-10.8) x10^3/uL RBC (4.20-5.40) 10^6/uL Hgb (12.0-16.0) g/dL Hct (37.0-47.0) % MCV (81.0-99.0) fL MCH (27.0-31.0) pg MCHC (32.0-36.0) g/dL RDW (12.0-15.0) % Plt Count (130-450) 10^3/uL MPV (7.9-10.8) fL Neut # (Auto) (1.5-6.6) 10^3/uL Lymph # (Auto) (1.5-3.5) 10^3/uL [place] # (Auto) (0.0-1.0) 10^3/uL Eos # (Auto) (0.0-0.7) 10^3/uL Baso # (Auto) (0.0-0.1) 10^3/uL Absolute Nucleated RBC x10^3/uL Nucleated RBC % /100WBC Sodium (135-145) mmol/L Potassium (3.5-4.5) mmol/L Chloride (101-111) mmol/L Carbon Dioxide (21-32) mmol/L Anion Gap (6-13) BUN (6-20) mg/dL Creatinine (0.6-1.3) mg/dL Estimated GFR (MDRD) (>89) Glucose (74-104) mg/dL POC Whole Bld Glucose 241 H 194 H (70 - 100) mg/dL Calcium (8.5-10.3) mg/dL B-Natriuretic Peptide 186 H (5-100) pg/mL 03/02/24 03/02/24 03/01/24 Range/Units 05:20 05:20 20:51 WBC 14.7 H (4.8-10.8) x10^3/uL RBC 4.00 L (4.20-5.40) 10^6/uL Hgb 11.1 L (12.0-16.0) g/dL Hct 34.0 L (37.0-47.0) % MCV 85.0 (81.0-99.0) fL MCH 27.8 (27.0-31.0) pg MCHC 32.6 (32.0-36.0) g/dL RDW 16.4 H (12.0-15.0) % Plt Count 200 (130-450) 10^3/uL MPV 11.0 H (7.9-10.8) fL Neut # (Auto) 12.5 H (1.5-6.6) 10^3/uL Lymph # (Auto) 1.2 L (1.5-3.5) 10^3/uL [place] # (Auto) 0.7 (0.0-1.0) 10^3/uL Eos # (Auto) 0.0 (0.0-0.7) 10^3/uL Baso # (Auto) 0.0 (0.0-0.1) 10^3/uL Absolute Nucleated RBC 0.00 x10^3/uL Nucleated RBC % 0.0 /100WBC Sodium 138 (135-145) mmol/L Potassium 3.7 (3.5-4.5) mmol/L Chloride 107 (101-111) mmol/L Carbon Dioxide 24 (21-32) mmol/L Anion Gap 7.0 (6-13) BUN 20 (6-20) mg/dL Creatinine 0.7 (0.6-1.3) mg/dL Estimated GFR (MDRD) 81 L (>89) Glucose 206 H (74-104) mg/dL POC Whole Bld Glucose 350 H (70 - 100) mg/dL Calcium 9.4 (8.5-10.3) mg/dL B-Natriuretic Peptide (5-100) pg/mL 03/01/24 03/01/24 Range/Units 20:43 16:43 WBC (4.8-10.8) x10^3/uL RBC (4.20-5.40) 10^6/uL Hgb (12.0-16.0) g/dL Hct (37.0-47.0) % MCV (81.0-99.0) fL MCH (27.0-31.0) pg MCHC (32.0-36.0) g/dL RDW (12.0-15.0) % Plt Count (130-450) 10^3/uL MPV (7.9-10.8) fL Neut # (Auto) (1.5-6.6) 10^3/uL Lymph # (Auto) (1.5-3.5) 10^3/uL [place] # (Auto) (0.0-1.0) 10^3/uL Eos # (Auto) (0.0-0.7) 10^3/uL Baso # (Auto) (0.0-0.1) 10^3/uL Absolute Nucleated RBC x10^3/uL Nucleated RBC % /100WBC Sodium (135-145) mmol/L Potassium (3.5-4.5) mmol/L Chloride (101-111) mmol/L Carbon Dioxide (21-32) mmol/L Anion Gap (6-13) BUN (6-20) mg/dL Creatinine (0.6-1.3) mg/dL Estimated GFR (MDRD) (>89) Glucose (74-104) mg/dL POC Whole Bld Glucose 329 H 267 H (70 - 100) mg/dL Calcium (8.5-10.3) mg/dL B-Natriuretic Peptide (5-100) pg/mL ABX Reporting Has patient been on IV antibiotics over the past 48 hours?: Yes Assessment/Plan - Problem List (1) Acute respiratory failure with hypoxia Impression: due to viral infection and possible secondary bacterial lung infection. No growth to date on blood cultures. Improved 02 need and she is down to 1 liter. Lungs w coarse rhonchi today and improved air movementsounds. No wheezing, no use of accessory muscles. Cough is congested w clear secretions. Plan: No tamilflu continue duoneb stop azithromycin after today's dose since Day 3/3 Continue ceftriaxone Day 3/5 stop solumedrol since she is Day 3/3 continue IS Plan for dc when she is on room air since she has to get on a place to return home. I have verified who her PCP is (daughter [employer] Luzma Kc who is with a [facility] [place], [place]) (2) CAP (community acquired pneumonia) Conclusion/Plan: Bilateral lower lobes. Has left shift on WBC that is mildly elevated indicating bacterial infection. as above with abx. Qualifiers: Lung location: unspecified part of lung (3) COPD without exacerbation Conclusion/Plan: Lung exam as above. Continue Duoneb and IV steroids solumedrol 40 mg TID. (4) Controlled type 2 diabetes mellitus without complication, without long-term current use of insulin Conclusion/Plan: Home med is metformin. She is on IV steroids. HA1c 6.8, suggests suboptimal b lood glucose control. Blood glucose 350 prior to lunch yesterday on insulin lispro moderate intensity (received 9 units SQ). I added lantus 10 units at pm last night. This morning 194, and 241 before lunch. Plan: Continue glucometer stick ac and hs. SS insulin before meals, increase to high intensity protocol Continue lantus 10 units at hs and add a dose of 5 units in am. But I suspect her glucose will come down with steroids being stopped (5) Do not resuscitate Conclusion/Plan: She doesn't want cpr or intubation. But does want full treatment prior to that.
[2024-03-03 05:33] LABS: BASOPHILS % (AUTO) 0.4 %; EOSINOPHILS % (AUTO) 0.1 %; HGB - HEMOGLOBIN 11.1 g/dL (12.0-16.0); MEAN CORPUSCULAR HEMOGLOBIN 27.8 pg (27.0-31.0); MEAN CORPUSCULAR HGB CONC 32.6 g/dL (32.0-36.0); MEAN PLATELET VOLUME 10.6 fL (7.9-10.8); MONOCYTES % (AUTO) 4.9 %; NEUTROPHILS % (AUTO) 79.6 %; PLT - PLATELET COUNT 238 10^3/uL (130-450); RED CELL DISTRIBUTION WIDTH 16.6 % (12.0-15.0); WHITE BLOOD COUNT 15.5 x10^3/uL (4.8-10.8)
[2024-03-03 05:45] LABS: ABNORMAL LYMPHS % (MANUAL) 0 %
[2024-03-03 05:54] LABS: CALCIUM 9.3 mg/dL (8.5-10.3); CREATININE 0.7 mg/dL (0.6-1.3); POTASSIUM 4.3 mmol/L (3.5-4.5)
[2024-03-03 06:12] LABS: BAND NEUTROPHILS % (MANUAL) 2 %; DIFFERENTIAL COMMENT MANUAL DIFFERENTIAL; LYMPHOCYTES # (MANUAL) 1.7 10^3/uL (1.5-3.5); LYMPHOCYTES % (MANUAL) 11 %; METAMYELOCYTES % (MANUAL) 2 %; MONOCYTES # (MANUAL) 0.8 10^3/uL (0.0-1.0); MYELOCYTES % (MANUAL) 2 %; NEUTROPHILS # (MANUAL) 12.4 10^3/uL (1.5-6.6); PLATELET ESTIMATE, MANUAL NORMAL (130-450,000) (NORMAL); RBC MORPHOLOGY (MULTIPLE) NORMAL APPEARANCE (NORMAL)
[2024-03-03 06:38] VITALS: O2SAT 92
[2024-03-03 07:46] VITALS: BP 135/84
[2024-03-03] MEDS: INSULIN GLARGINE-YFGN 300 UNIT/3 ML PEN SUBQ SCH (08:07)
--- NOTE | 2024-03-03 11:01 | Discharge Plan ---
Discharge Plan Problem Reviewed?: Yes Disposition: Home, Self Care Condition: Good Prescriptions: Amox/Clav 500/125 [Augmentin 500/125] 1 tablet PO Q12H #6 tablet Diet: Diabetic Activity Restrictions: Activity as Tolerated Shower Restrictions: No Driving Restrictions: No Health Concerns: You are visiting from [place] and tell us that you have a diagnosis of COPD with asthma as a result of having COVID in October 2023. You take an inhaler on a regular basis. He presented to our emergency room while in the middle of your visit with 4 days of cough, congestion, fever and lack of appetite. He said that your symptoms started in [place] even before he got on the plane. And by the time you got here you were much worse. You were due to do a river cruise at the [facility] and had to cancel. In our emergency room we found you to have a very low oxygen, pneumonia in your lower lungs. You were started on antibiotics and steroids. You have done very well and feel well. You are eating. Ambulating in the room. When you are at rest you do not need oxygen. However when you get up and walk , your lungs are requiring 2 L of nasal cannula oxygen to maintain a normal oxygenation. Since you feel so much better, you would like to go home and fly back to [place] as soon as possible Plan of Treatment: 1. We do recommend that you take oxygen. However that will delay your flight to [place]. Flying at 30,000 feet will cause you to need more oxygen. Normally that is well handled by your body. But since you already need oxygen, you will need extra oxygen to fly, and it may cause a delay as we try and arrange with [email or web address] for you to get oxygen. You have decided that you are going to go to [place] without the oxygen in spite of the risk. 2. We are asking that you finish antibiotic therapy with Augmentin. Take 1 tablet twice a day for 8 more doses. 3. Since antibiotics can cause change in your bowel habits, we recommend that you take an clra-wod-atymeul probiotic twice a day. 4. Please see your primary care provider in follow-up when you land in [place].. Assessment: Patient is alert, oriented to person, place, time and situation. She is decisional No Smoking: If you smoke, Please STOP! Call for help.
--- NOTE | 2024-03-03 11:08 | DISCHARGE SUMMARY ---
"Discharge Summary Admit Date: 02/29/24 Discharge Date: 03/03/24 Discharging Provider: Emy Woody MD Primary Care Provider: Luzma CASTAÑEDA ( ) Code Status: Do Not Attempt Resuscitation Condition at Discharge: Good Discharge Disposition: 01 Home, Self Care - DIAGNOSES Discharge Diagnoses with Status of Each Condition: 1. Acute respiratory failure with hypoxia 2. Community-acquired pneumonia 3. COPD without exacerbation 4. Controlled type 2 diabetes mellitus without complication, without long-term current use of insulin 5. DO NOT RESUSCITATE status 6. non Covid kruse virus and parainflueza viral infection - HPI History of Present Illness: from [place], visiting friends. Healthy w no major issues other than DM. Developed COPD w asthma 10/2023 when she Became ill with COVID and strep throat. She uses an inhaler once a day without issues. She was ill even before she left [place] to come to the [place]. Cough, chest congestion, and fever. Anorexia. Had 1 episode of diarrhea yesterday. Came to the emergency room where she was hypoxic to 83% on room air. Currently on MedSurg she is requiring 4 L nasal cannula to saturate at 90%. In the emergency room she is mildly tachycardic to the low 100s. Normotensive. No respiratory distress. Temperature is 37. She has markedly diminished breath sounds in all lung avila according to the emergency room provider but no outright wheezing or use of accessory muscles. Her chest x-ray was negative for pneumonia. And a CT pulmonary angiogram was done because of her recent travel history. She does not have pulmonary embolus but she does have patchy bibasilar opacities suggesting atelectasis and a possibly developing superimposed pneumonia. Her sodium was mildly low at 131. Her white cell count was elevated 11.5. She had 23% bands, 3% metamyelocytes. She has diabetes and glucose was 156. BNP was 253. Lactic acid 1.9. Her viral panel was positive for non-COVID coronavirus, and parainfluenza. I am now placing her in inpatient status for hypoxia, tachycardia and an abnormal chest x-ray. 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: Other () : reports: Incontinence (at night wears depends) HEENT: reports: None Psych: reports: Claustrophobia Musculoskeletal: reports: None Derm: reports: None MRSA Hx?: No Other Past Medical History: Patient denies hx of CHF, dental bridge (>50 yrs ago), Mastectomy at left, skin cancer (>10 years ago) - Past Surgical History General: reports: Cholecystectomy, Appendectomy /PHYSICAL THERAPY ASSISTANT INSTRUCTOR: reports: Mastectomy Derm: reports: Skin cancer surgery - CONSULTS | PROCEDURES Procedures: Chest x-ray with no acute cardiopulmonary process CT/thorax with angiogram had patchy bibasilar opacities and no pulmonary emboli - HOSPITAL COURSE Hospital Course: The patient was placed on empiric antibiotic therapy because of the changes of either atelectasis or pneumonia at the bases. She was significantly hypoxic and it was surprising she did not wheeze more. She was placed on [address] eroids, had 3 days of azithromycin and 4 days of Rocephin. She should take 3-4 more days of Augmentin to complete empiric therapy for possible bacterial pneumonia. We do feel most of her decompensation was due to viral infection from non-COVID coronavirus as well as parainfluenza virus. Her blood cultures were negative. On the day of discharge the patient's room air saturation was adequate at 92 to 93%. However with ambulation in the room, her O2 sats decompensated to the mid 80s. Respiratory therapy was recommending 2 L nasal cannula to maintain O2 sats greater than 90%. However the patient was adamant that she wanted to go home to [place]. She did not want to take oxygen on the plane with her since it may delay her getting to [place]. I did warn her that sometimes oxygen requirements are higher at pressurized 30,000 feet then she would realize. If she has an event in the air, the plane may be forced to do a landing between here in [place] which could be [place], [place], [place], etc. However she said that she would willing to take those chances. She is a pleasant, alert, oriented female who looks younger than her stated age. Temperature is 36.7. Heart rate 90. Blood pressure 135/84. Respirations 18. 92% on room air. She is not in any respiratory distress at rest. Has been reading a book, eating her meals, ambulating in the room without any assist. L ungs have musical rhonchi and chest congestion. But no use of accessory muscles. No wheezing. Regular rate and rhythm. And abdomen that soft, nontender. Extremities without edema. Neurologically she is alert and oriented to person, place, time and situation. No focal deficits. No ataxia. She is discharged in stable condition. She is discharged with Augmentin 500 twice daily for 4 more doses. She will resume her only handheld inhaler. I am asking that she see her primary care provider, who is her daughter, in [place] when she lands. Greater than 30 minutes was spent coordinating discharge This document was made in part using voice recognition software. While efforts are made to proofread this document, sound alike and grammatical errors may occur. - ALLERGIES Allergies/Adverse Reactions: Allergies Allergy/AdvReac Type Severity Reaction Status Date / Time No Known Drug Allergies Allergy Verified 02/29/24 08:00 - MEDICATIONS Home Medications: Ambulatory Orders Medication Instructions Recorded Confirmed Albuterol Sulfate [Proventil Hfa] 2 puffs INH Q4H PRN 02/29/24 02/29/24 Fluticasone/Vilanterol [Breo 1 inh INH DAILY 02/29/24 02/29/24 Ellipta 100-25 Mcg Inhalr] Levothyroxine [Synthroid] 75 mcg PO QDAC 02/29/24 02/29/24 Aspirin [Citrus Aspirin EC] 81 mg PO DAILY 03/01/24 03/01/24 Cetirizine [ZyrTEC] 10 mg PO DAILY 03/01/24 03/01/24 Cholecalciferol [Vitamin D3] See Rx Instructions .ROUTE .COMPLEX 03/01/24 03/01/24 metFORMIN [Glucophage] 500 mg PO DAILY 03/01/24 03/01/24 Amox/Clav 500/125 [Augmentin 1 tablet PO Q12H #6 tablet 03/03/24 500/125] - LABS Result Diagrams: 03/03/24 05:16 03/03/24 05:16"
== END 2024-03-03 13:05 | disposition home or self-care (01) | DRG 193 ==
LOC: ED 07:41 → MS2 12:37
PROVIDERS: ADMIT Specialist; ATTEND Specialist
DX: J18.9 Pneumonia, unspecified organism (principal); J44.1 Chronic obstructive pulmonary disease with (acute) exacerbation; J96.01 Acute respiratory failure with hypoxia; J44.0 Chronic obstructive pulmonary disease with (acute) lower respiratory infection; I50.9 Heart failure, unspecified; R00.0 Tachycardia, unspecified; R00.8 Other abnormalities of heart beat; Z87.891 Personal history of nicotine dependence; E11.9 Type 2 diabetes mellitus without complications; E03.9 Hypothyroidism, unspecified; B34.8 Other viral infections of unspecified site; R32 Unspecified urinary incontinence; Z66 Do not resuscitate; Z79.84 Long term (current) use of oral hypoglycemic drugs; Z79.890 Hormone replacement therapy; Z79.899 Other long term (current) drug therapy; Z82.0 Family history of epilepsy and other diseases of the nervous system; Z82.49 Family history of ischemic heart disease and other diseases of the circulatory system; Z83.2 Family history of diseases of the blood and blood-forming organs and certain disorders involving the immune mechanism; Z85.828 Personal history of other malignant neoplasm of skin; Z90.12 Acquired absence of left breast and nipple; Z90.49 Acquired absence of other specified parts of digestive tract
CPT/HCPCS: 36415; 71045; 71275; 80048; 80053; 83036; 83605; 83690; 83880; 85025; 87040; 87633; 93005; 94640; 96365; 96367; 99285; A9270; J1815; J7512; J7626; Q9967